=== PATIENT | male | born 1980 ===

== ENCOUNTER 2016-10-07 22:46 | Observation (INO) | payer OTHER ==
[2016-10-07 22:59] VITALS: RESP 16
[2016-10-07 23:08] LABS: % IMMATURE GRANULYOCYTES 0.2 % (0.0-1.1); ABSOLUTE IMMATURE GRANULOCYTES 0.02 10^3/uL (0.00-0.10); ADD DIFF? NO; ADD MORPH? NO; ADD SCAN? NO; ATYPICAL LYMPHOCYTE FLAG 0 (0-99); FRAGMENT RBC FLAG 0 (0-99); HEMATOCRIT 44.2 % (40.0-51.0); HEMOGLOBIN 15.4 g/dL (13.7-17.5); LEFT SHIFT FLG 0 (0-99); LIPEMIA HEMOLYSIS FLAG 90 (0-99); MEAN CELL HEMOGLOBIN 31.6 pg (27.9-34.1); MEAN CELL HEMOGLOBIN CONCENTR. 34.8 g/dL (32.4-36.7); MEAN CELL VOLUME 90.6 fL (81.5-99.8); MEAN PLATELET VOLUME 9.9 fL (8.7-11.7); PLATELET CLUMPS FLAG 0 (0-99); PLATELET COUNT 255 10^3/uL (150-400); RED BLOOD CELL COUNT 4.88 10^6/uL (4.40-6.38); RED CELL DISTRIBUTION WIDTH 12.6 % (11.5-15.2)
--- NOTE | 2016-10-07 23:10 | CPEKG ---
Heart Rate: 107 RR Interval: 561 P-R Interval: 196 QRSD Interval: 86 QT Interval: 296 QTC Interval: 395 P [place]: 45 QRS [place]: -10 T Wave [place]: 130 EKG Severity - ABNORMAL ECG - EKG Impression: SINUS TACHYCARDIA EKG Impression: PROBABLE LEFT ATRIAL ABNORMALITY EKG Impression: NONSPECIFIC T ABNORMALITIES, LATERAL LEADS Electronically Signed By: Loyda Brandon 08-Oct-2016 08:18:21
[2016-10-07 23:14] LABS: ANION GAP 21 mEq/L (8-16); CALCIUM 9.2 mg/dL (8.5-10.4); CARBON DIOXIDE 22 mEq/l (22-31); CHLORIDE 102 mEq/L (97-110); CREATININE 1.2 mg/dL (0.7-1.3); GLOMERULAR FILTRATION RATE > 60; GLUCOSE 97 mg/dL (70-100); POTASSIUM 3.2 mEq/L (3.5-5.2); SODIUM 145 mEq/L (134-144)
[2016-10-07 23:23] LABS: INR 1.08 (0.83-1.16); PROTIME(PATIENT) 13.9 SEC (12.0-15.0)
[2016-10-07 23:24] LABS: APTT 22.9 SEC (23.0-38.0)
[2016-10-07 23:33] LABS: ETHANOL SERUM 85 mg/dL (0-10)
--- NOTE | 2016-10-07 23:44 | EDPHY ---
H & P Stated Complaint: sudden onset of confusion at 2150, 4 beers tonight Time Seen by Provider: 10/07/16 22:50 HPI/ROS: HPI The patient presents with an episode of confusion that occurred at about 9:45 p.m. tonight while he was watching television. This was witnessed by his . They had had a normal day today, gone on a run and were at home after eating dinner and drinking about 4 beers over the course of 3-4 hours. According to the patient's , he was acting strangely and slurring his speech, he said he was feeling confused and could not describe what he was looking at on the television. They called his father in law, retired ER physician and the patient could not hold the phone properly to communicate with him, thus 911 was called. By the time the paramedics arrived the patient has had symptoms had improved somewhat and began to resolve while in the ambulance. His initial blood pressure by paramedics was 220 systolic over 110. Upon arrival in the emergency room, he was feeling much better. He says he does have a history of essential hypertension and was on lisinopril about 3 years ago but was able to manage his blood pressure with diet and exercise. His last blood pressure check was about 6 months ago and was normal. He does not have any headache. He has no prior history of similar. Besides the beer tonight, he denies any other drug ingestion.. REVIEW OF SYSTEMS Constitutional: No fever, no chills. Eyes: No discharge. ENT: No sore throat. Cardiovascular: No chest pain, no palpitations. Respiratory: No cough, no shortness of breath. Gastrointestinal: No abdominal pain, no vomiting. Genitourinary: No hematuria. Musculoskeletal: No back pain. Skin: No rashes. Neurological: No headache. PMHx: Hypertension Soc Hx: Alcohol use PHYSICAL General Appearance: Alert, no distress Eyes: Pupils equal and round no pallor or injection ENT, Mouth: Mucous membranes moist Respiratory: There are no retractions, lungs are clear to auscultation Cardiovascular: Regular rate and rhythm Gastrointestinal: Abdomen is soft and non-tender, no masses, bowel sounds normal Neurological: Alert and oriented x3, cranial nerves 2-12 intact, 5/5 strength in upper and lower extremities which is symmetric, no pronator drift, normal finger to nose and heel to carrillo testing, NIH stroke scale performed and is 0. Skin: Warm and dry, no rashes Musculoskeletal: Neck is supple non tender Extremities: symmetrical, full range of motion Psychiatric: Patient is oriented X 3, there is no agitation Source: Patient, EMS Exam Limitations: No limitations - Personal History Current Tetanus/Diphtheria Vaccine: Yes Current Tetanus Diphtheria and Acellular Pertussis (TDAP): Yes Tetanus Vaccine Date: 2011 - Medical/Surgical History Hx Asthma: No Hx Chronic Respiratory Disease: No Hx Diabetes: No Hx Cardiac Disease: Yes Hx Renal Disease: No Hx Cirrhosis: No Hx Alcoholism: No Hx HIV/AIDS: No Hx Splenectomy or Spleen Trauma: No Other PMH: HTN, hydrocele repair as a child - Social History Smoking Status: Never smoked Constitutional: Initial Vital Signs Temperature (C) 36.7 C 10/07/16 22:57 Heart Rate 110 H 10/07/16 22:57 Respiratory Rate 16 10/07/16 22:57 Blood Pressure 189/115 H 10/07/16 22:57 O2 Sat (%) 95 10/07/16 22:57 O2 Delivery Mode Nasal Cannula Allergies/Adverse Reactions: No Known Allergies Allergy (Unverified 10/07/16 22:57) Home Medications: Medication Instructions Recorded NK [No Known Home Meds] 10/07/16 Medical Decision Making - Diagnostics EKG Interpretation: EKG: Complete interpretation has been separately recorded in the [email or web address] archive. Summary impression: Sinus tachycardia with T-wave flattening diffusely, no old for comparison Imaging: CT head without contrast demonstrates no abnormalities, discussed with Dr. Giles of Radiology. Chest x-ray one view shows no cardiomegaly, interpreted by me, reviewed by radiology. ED Course/Re-evaluation: 10:50 p.m.- Initial evaluation, patient with no neurologic deficits at this time. Blood pressure continues to be elevated. 12:15 a.m.- The patient continues to be stable with no changes in his mental status. His blood pressures are elevated. Labs are relatively unremarkable except for positive alcohol level. His CT scan is unremarkable. I have discussed all of the above with him. I feel he could have hypertensive encephalopathy as a cause of his symptoms verses less likely TIA. Because his blood pressures continue to be elevated and there is some diagnostic uncertainty, I plan to admit him to the hospital. I have discussed the case with Dr. Garcia of the hospitalist service and I have ordered him a bed. I will defer blood pressure management to her. Differential Diagnosis: This is a 35-year-old man with history of hypertension who presents brought in by ambulance for episode of confusion, now mostly resolved. He is continually hypertensive here. Differential diagnosis includes TIA, posterior reversible leukoencephalopathy, drug use. - Data Points Laboratory Results: Laboratory Results 10/07/16 22:45 10/07/16 22:45 10/07/16 22:45 WBC 11.28 H 10^3/uL (3.80-9.50) RBC 4.88 10^6/uL (4.40-6.38) Hgb 15.4 g/dL (13.7-17.5) Hct 44.2 % (40.0-51.0) MCV 90.6 fL (81.5-99.8) MCH 31.6 pg (27.9-34.1) MCHC 34.8 g/dL (32.4-36.7) RDW 12.6 % (11.5-15.2) Plt Count 255 10^3/uL (150-400) MPV 9.9 fL (8.7-11.7) Neut % (Auto) 46.7 % (39.3-74.2) Lymph % (Auto) 43.4 % (15.0-45.0) [place] % (Auto) 8.8 % (4.5-13.0) Eos % (Auto) 0.5 L % (0.6-7.6) Baso % (Auto) 0.4 % (0.3-1.7) Nucleat RBC Rel Count 0.0 % (0.0-0.2) Absolute Neuts (auto) 5.26 10^3/uL (1.70-6.50) Absolute Lymphs (auto) 4.90 H 10^3/uL (1.00-3.00) Absolute Monos (auto) 0.99 H 10^3/uL (0.30-0.80) Absolute Eos (auto) 0.06 10^3/uL (0.03-0.40) Absolute Basos (auto) 0.05 10^3/uL (0.02-0.10) Absolute Nucleated RBC 0.00 10^3/uL (0-0.01) Immature Gran % 0.2 % (0.0-1.1) Immature Gran # 0.02 10^3/uL (0.00-0.10) PT 13.9 SEC (12.0-15.0) INR 1.08 (0.83-1.16) APTT 22.9 L SEC (23.0-38.0) Sodium 145 H mEq/L (134-144) Potassium 3.2 L mEq/L (3.5-5.2) Chloride 102 mEq/L (97-110) Carbon Dioxide 22 mEq/l (22-31) Anion Gap 21 H mEq/L (8-16) BUN 19 mg/dL (7-23) Creatinine 1.2 mg/dL (0.7-1.3) Estimated GFR > 60 Glucose 97 mg/dL (70-100) Calcium 9.2 mg/dL (8.5-10.4) Troponin I < 0.012 ng/mL (0-0.034) Ethyl Alcohol 85 H mg/dL (0-10) Departure - Departure Condition: Good
[2016-10-07 23:45] LABS: TROPONIN I < 0.012 ng/mL (0-0.034)
--- NOTE | 2016-10-07 23:46 | CT ---
CT Head (Without Contrast) Indication: Acute onset confusion Technique: 5 mm images were obtained of the head without contrast. Multiplanar reformation was perfor med. Dose reduction techniques were utilized. Findings: No evidence for intracranial mass, hemorrhage, or infarct. The ventricles, sulci, and ciste rns are within normal limits for the patient's age. No evidence for an extra-axial fluid collection. No evidence for skull fracture. Paranasal sinuses are clear. Impression: Normal. Results called and discussed with Loyda Brandon MD at 10/07/2016 23:45
--- NOTE | 2016-10-08 00:03 | DX ---
Portable chest, single view. HISTORY: Acute neurologic change. Confusion. FINDINGS: Heart size is within normal limits. Pulmonary vascularity appears normal. Lungs are clear. No evidence for pleural effusion or pneumothorax. No significant osseous abnormality. IMPRESSION: No evidence for acute cardiopulmonary abnormality.
[2016-10-08] MEDS ORDERED: ONDANSETRON 4 MG/2 ML VIAL IVP PRN (01:05)
[2016-10-08] MEDS ORDERED: ACETAMINOPHEN 500 MG TAB PO PRN (01:05)
[2016-10-08] MEDS ORDERED: HYDROCODONE/APAP 5/325 TAB PO PRN (01:05)
[2016-10-08] MEDS ORDERED: ONDANSETRON DISINTEGRATING 4 MG TAB PO PRN (01:05)
[2016-10-08 01:33] LABS: CHOLESTEROL 212 mg/dL (140-200); CHOLESTEROL/HDL RATIO 2.59 RATIO (1.00-4.97); HIGH DENSITY LIPOPROTEIN 82 mg/dL (40-65); LDL/HDL RATIO 1.22 RATIO (1.00-3.64); LOW DENSITY LIPOPROTEIN 100 mg/dL (70-100); MAGNESIUM 2.2 mg/dL (1.6-2.3); NON-HIGH DENSITY LIPOPROTEIN 130 mg/dL (90-129); TRIGLYCERIDE 151 mg/dL (40-150); VERY LOW DENSITY LIPOPROTEINS 30 mg/dL (8-25)
[2016-10-08 01:37] LABS: COLOR YELLOW; LEUKOCYTE ESTERASE,URINE NEGATIVE (NEGATIVE); NITRITE,URINE NEGATIVE (NEGATIVE)
--- NOTE | 2016-10-08 02:20 | PDGENHP ---
History and Physical - Chief Complaint altered mental status - History of Present Illness Patient is a [id number] with hypertension, recently diet/exercise controlled, who presents to the ED with altered mental status. Patient states he was watching a movie with his on the evening of presentation, when he suddenly started acting strangely, appeared to be confused and developed some slurring of his speech. He was not redirectable or improving, so pt's called EMS. On EMS' arrival, pt's BP was noted to be 220/110 and patient was altered. He was then transported to the ED. Denies any recent fevers , chills, DRAKE, chest pain, shortness of breath, cough, abdominal pain, n/v/d or dysuria. He also denies any focal numbness, tingling or weakness. Of note, patient states having a significantly stressful past 2-3 months, having recently gotten , started up a [employer] and moved to [place]. He states he was diagnosed with hypertension in his early 20s, secondary adrenal causes were ruled out and he was previously on lisinopril, but this had been discontinued after he adopted diet/lifestyle modification. He hasn't checked his BP in several years and does not have a PMD here in [place]. On the evening prior to arrival, patient reports eating a meal very high in salt. Mental status had improved significantly during transport to the ED and by arrival patient was back to his baseline mental status and speech. BP was noted to be elevated, but improved over ED course without intervention. Labs, including troponin were unremarkable. CT head and EKG were also unremarkable. He was then admitted to the hospitalist service for further management. History Information - Allergies/Home Medication List Allergies/Adverse Reactions: No Known Allergies Allergy (Unverified 10/07/16 22:57) Home Medications: NK [No Known Home Meds] 10/07/16 [Last Taken Unknown] I have personally reviewed and updated: family history, medical history, social history, surgical history - Past Medical History Additional medical history: Hypertension - Surgical History Reports: no pertinent surgical hx - Family History Additional family history: F: HTN - Social History Smoking Status: Never smoked Alcohol Use: Rarely Drug Use: None Additional social history: Patient lives with his , self-employed [employer] of [employer]. Review of Systems ROS: 10pt was reviewed & negative except for what was stated in HPI & below Physical Exam Temp Pulse Resp BP Pulse Ox 36.9 C 89 16 166/105 H 92 10/08/16 01:18 10/08/16 01:18 10/08/16 01:18 10/08/16 01:18 10/08/16 01:18 Constitutional: no apparent distress, appears nourished, not in pain Eyes: PERRL, anicteric sclera, EOMI Ears, Nose, Mouth, Throat: moist mucous membranes, hearing normal, ears appear normal, no oral mucosal ulcers Cardiovascular: regular rate and rhythym, no murmur, rub, or gallop, pulses symmetric bilaterally, No JVD, No edema Peripheral Pulses: 2+: dorsalis-pedis (R), dorsalis-pedis (L) Respiratory: no respiratory distress, no rales or rhonchi, clear to auscultation Gastrointestinal: normoactive bowel sounds, soft, non-tender abdomen, no palpable masses Genitourinary: no bladder fullness, no bladder tenderness Skin: warm, normal color, no rashes or abrasions, no fluctuance, no induration, No mottled Musculoskeletal: full muscle strength, no muscle tenderness, normal joint ROM, no joint effusions Neurologic: AAOx3, sensation intact bilaterally, CN II-XII Intact, No weakness, No numbness, No pronator drift, No facial droop Psychiatric: interacting appropriately, not anxious, not encephalopathic, thought process linear Lab Data & Imaging Review 10/07/16 22:45 10/07/16 22:45 WBC 11.28 10^3/uL (3.80-9.50) H 10/07/16 22:45 RBC 4.88 10^6/uL (4.40-6.38) 10/07/16 22:45 Hgb 15.4 g/dL (13.7-17.5) 10/07/16 22:45 Hct 44.2 % (40.0-51.0) 10/07/16 22:45 MCV 90.6 fL (81.5-99.8) 10/07/16 22:45 MCH 31.6 pg (27.9-34.1) 10/07/16 22:45 MCHC 34.8 g/dL (32.4-36.7) 10/07/16 22:45 RDW 12.6 % (11.5-15.2) 10/07/16 22:45 Plt Count 255 10^3/uL (150-400) 10/07/16 22:45 MPV 9.9 fL (8.7-11.7) 10/07/16 22:45 Neut % (Auto) 46.7 % (39.3-74.2) 10/07/16 22:45 Lymph % (Auto) 43.4 % (15.0-45.0) 10/07/16 22:45 [place] % (Auto) 8.8 % (4.5-13.0) 10/07/16 22:45 Eos % (Auto) 0.5 % (0.6-7.6) L 10/07/16:45 Baso % (Auto) 0.4 % (0.3-1.7) 10/07/16 22:45 Nucleat RBC Rel Count 0.0 % (0.0-0.2) 10/07/16 22:45 Absolute Neuts (auto) 5.26 10^3/uL (1.70-6.50) 10/07/16 22:45 Absolute Lymphs (auto) 4.90 10^3/uL (1.00-3.00) H 10/07/16 22:45 Absolute Monos (auto) 0.99 10^3/uL (0.30-0.80) H 10/07/16 22:45 Absolute Eos (auto) 0.06 10^3/uL (0.03-0.40) 10/07/16 22:45 Absolute Basos (auto) 0.05 10^3/uL (0.02-0.10) 10/07/16:45 Absolute Nucleated RBC 0.00 10^3/uL (0-0.01) 10/07/16:45 Immature Gran % 0.2 % (0.0-1.1) 10/07/16:45 Immature Gran # 0.02 10^3/uL (0.00-0.10) 10/07/16 22:45 PT 13.9 SEC (12.0-15.0) 10/07/16 22:45 INR 1.08 (0.83-1.16) 10/07/16 22:45 APTT 22.9 SEC (23.0-38.0) L 10/07/16 22:45 Sodium 145 mEq/L (134-144) H 10/07/16 22:45 Potassium 3.2 mEq/L (3.5-5.2) L 10/07/16 22:45 Chloride 102 mEq/L (97-110) 10/07/16 22:45 Carbon Dioxide 22 mEq/l (22-31) 10/07/16 22:45 Anion Gap 21 mEq/L (8-16) H 10/07/16 22:45 BUN 19 mg/dL (7-23) 10/07/16 22:45 Creatinine 1.2 mg/dL (0.7-1.3) 10/07/16 22:45 Estimated GFR > 60 10/07/16 22:45 Glucose 97 mg/dL (70-100) 10/07/16 22:45 Calcium 9.2 mg/dL (8.5-10.4) 10/07/16 22:45 Magnesium 2.2 mg/dL (1.6-2.3) 10/07/16 22:45 Troponin I < 0.012 ng/mL (0-0.034) 10/07/16 22:45 Triglycerides 151 mg/dL (40-150) H 10/07/16 22:45 Cholesterol 212 mg/dL (140-200) H 10/07/16 22:45 Cholesterol Risk Factr 0.4 (0.2-1.0) 10/07/16 22:45 LDL Cholesterol, Calc 100 mg/dL (70-100) 10/07/16 22:45 LDL Risk Factor 0.6 (0.2-1.0) 10/07/16 22:45 VLDL Cholesterol 30 mg/dL (8-25) H 10/07/16 22:45 Non-HDL Cholesterol 130 mg/dL (90-129) H 10/07/16 22:45 HDL Cholesterol 82 mg/dL (40-65) H 10/07/16 22:45 LDL/HDL Ratio 1.22 RATIO (1.00-3.64) 10/07/16 22:45 Cholesterol/HDL Ratio 2.59 RATIO (1.00-4.97) 10/07/16 22:45 TSH 3.420 uIU/mL (0.465-4.680) 10/07/16 22:45 Urine Color YELLOW 10/08/16 01:20 Urine Appearance CLEAR 10/08/16 01:20 Urine pH 6.0 (5.0-7.5) 10/08/16 01:20 Ur Specific [place] 1.008 (1.002-1.030) 10/08/16 01:20 Urine Protein NEGATIVE (NEGATIVE) 10/08/16 01:20 Urine Ketones NEGATIVE (NEGATIVE) 10/08/16 01:20 Urine Blood NEGATIVE (NEGATIVE) 10/08/16 01:20 Urine Nitrate NEGATIVE (NEGATIVE) 10/08/16 01:20 Urine Bilirubin NEGATIVE (NEGATIVE) 10/08/16 01:20 Urine Urobilinogen NEGATIVE EU (0.2-1.0) 10/08/16 01:20 Ur Leukocyte Esterase NEGATIVE (NEGATIVE) 10/08/16 01:20 Urine Glucose NEGATIVE (NEGATIVE) 10/08/16 01:20 Urine Opiates Screen NEGATIVE (NEGATIVE) 10/08/16 01:20 Urine Barbiturates NEGATIVE (NEGATIVE) 10/08/16 01:20 Ur Phencyclidine Scrn NEGATIVE (NEGATIVE) 10/08/16 01:20 Ur Amphetamine Screen NEGATIVE (NEGATIVE) 10/08/16 01:20 U Benzodiazepines Scrn NEGATIVE (NEGATIVE) 10/08/16 01:20 Urine Cocaine Screen NEGATIVE (NEGATIVE) 10/08/16 01:20 U Marijuana (THC) Screen NEGATIVE (NEGATIVE) 10/08/16 01:20 Ethyl Alcohol 85 mg/dL (0-10) H 10/07/16 22:45 Visualized and Interpreted Chest x-ray results: Yes Chest X-Ray results: no infiltrate, normal Visualized and Interpreted imaging results: Yes Interpretation: CT head: negative for any acute intracranial abnormalities Visualized and Interpreted EKG results: Yes EKG Interpretation: Positive for: normal sinsus rhythm (no obvious ST/t wave changes) Assessment & Plan Assessment: Patient is a 35/M with HTN, previously controlled with lifestyle modification, who presents to the ED with acute encephalopathy in the setting of markedly elevated BP, consistent with hypertensive emergency vs TIA. Plan: # acute encephalopathy Encephalopathy was noted to be associated with mild dysarthria and possible ptosis, per pt's . All symptoms have resolved and patient has returned to baseline mental status on my evaluation. CT head reveals no acute abnormalities. At time of AMS, pt's BP was noted to be > 200/100, which appears consistent with hypertensive emergency, however, TIA is also on the differential. - neuro checks, BP control - check TTE, lipid panel, TSH # hypertensive emergency BP > 200 with evidence of end-organ damage given acute encephalopathy. BP improved over ED course without intervention, however, still elevated. Pt relates a significant amount of personal stress over the past several months, in addition was recently noncompliant with a low salt diet, both of which have likely contributed to his uncontrolled BP present on admission. Pt was previously on lisinopril, will restart this. # dispo: admit to observation status for TIA vs HTN emergency # gen: cardiac diet DVT ppx: low risk Full code
[2016-10-08] MEDS ORDERED: PROTOCOL POTASSIUM 1 DOSE MISC PRN (04:37)
[2016-10-08] MEDS ORDERED: PROTOCOL MAGNESIUM 1 DOSE IV PRN (04:37)
[2016-10-08] MEDS ORDERED: hydrALAZINE 20 MG/ML VIAL IVP PRN (04:46)
[2016-10-08] MEDS ORDERED: LISINOPRIL 10 MG TAB PO SCH ×2 (05:00→09:00)
--- NOTE | 2016-10-08 05:52 | CPEKG ---
Heart Rate: 70 RR Interval: 857 P-R Interval: 184 QRSD Interval: 86 QT Interval: 400 QTC Interval: 432 P [place]: 55 QRS [place]: 0 T Wave [place]: -16 EKG Severity - BORDERLINE ECG - EKG Impression: SINUS RHYTHM EKG Impression: BORDERLINE T ABNORMALITIES, INFERIOR LEADS Electronically Signed By: Loyda Brandon 08-Oct-2016 08:18:08
[2016-10-08 06:00] LABS: MAGNESIUM 2.2 mg/dL (1.6-2.3)
--- NOTE | 2016-10-08 08:34 | HOSPPROG ---
Hospitalist Progress Note Assessment/Plan: Patient is a 35/M with HTN, previously controlled with lifestyle modification, who presents to the ED with acute encephalopathy in the setting of markedly elevated BP, consistent with hypertensive emergency vs TIA. # acute encephalopathy * TIA vs hypertensive urgency * had mild dysarthria and possible ptosis/ resolved * will ask neurology to see * CT of head ok * will check CT angio of head and neck * reviewed telemetry-sinus * asa po * allow for permissive htn * echo pending # hypertensive emergency BP > 200 with evidence of end-organ damage given acute encephalopathy. # dispo: admit to observation Subjective: Slava is feeling well/ no difficulty w his speech/ no complaints. Objective: Vital Signs Temp Pulse Resp BP Pulse Ox 36.7 C 80 16 140/83 H 96 10/08/16 04:00 10/08/16 04:00 10/08/16 04:00 10/08/16 04:00 10/08/16 04:00 Laboratory Results 10/08/16 05:35 10/07/16 10/08/16 10/09/16 05:59 05:59 05:59 Intake Total 200 Output Total 600 Balance -400 PT 13.9 SEC (12.0-15.0) 10/07/16 22:45 INR 1.08 (0.83-1.16) 10/07/16 22:45 - Physical Exam Constitutional: no apparent distress, appears nourished, not in pain Eyes: PERRL Ears, Nose, Mouth, Throat: moist mucous membranes, hearing normal Cardiovascular: regular rate and rhythym, no murmur, rub, or gallop Respiratory: no respiratory distress Gastrointestinal: normoactive bowel sounds Skin: warm, normal color Musculoskeletal: full muscle strength, no muscle tenderness Neurologic: AAOx3, sensation intact bilaterally, CN II-XII Intact, No weakness, No facial droop Psychiatric: interacting appropriately, not anxious, not encephalopathic ICD10 Worksheet Patient Problems: Problems Problem Status Diagnosed Hypertensive encephalopathy syndrome Acute
[2016-10-08] MEDS ORDERED: ASPIRIN 81 MG CHEWABLE TAB PO SCH (09:00)
[2016-10-08] MEDS ORDERED: NS 1,000 ML IV SCH (09:00)
[2016-10-08] MEDS ORDERED: IOPAMIDOL (ISOVUE 370) 100 ML BTL IV ONE (10:07)
--- NOTE | 2016-10-08 11:22 | GCON ---
[f rep st] CONSULTATION NEUROLOGIC CONSULTATION. REFERRING PHYSICIAN: Ashley Ko NP HISTORY: The patient is a 35-year-old gentleman who is here in the hospital for an acute episode of neurologic dysfunction characterized by some confusion, trouble speaking, visual complaints, and florentin edly elevated high blood pressure. History is obtained from direct review from the patient, as well as his and review of medical records in the emergency department and history and physical. He was spending yesterday fairly active and had gone on a hike in the afternoon, and they apparently were in the 9000 or 10,000 foot range maximum, doing some running during that time but mostly hiking, and he felt a little bit short of breath during that time, but nothing particularly unusual. 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 They came home, had dinner, then had a beer, and perhaps 3 more beers after that by the patient's report. There were watching a movie, and at around 9:30 p.m. his said that he started to laugh and it was not a period where it would be logical to laugh in the film. He said sometimes he teases him that way and so he was not sure if he was actually having a problem or not, so he spoke to him and tried to get his attention and when h e turned his head toward him he said he was not really able to focus very well at him, and he had max cribed just prior to that getting a sense of perhaps john vu. He did not have any fixed gaze prefere nce or asymmetry to his face, and did not appear to be having any convulsive activity. As he tried c ommunicating with him more it became clear that he was struggling for words, and was a little bit con fused. He wanted to call his stepfather and he initially told him not to do that, but he did speak t o him and said he needed to go the bathroom. He went to the bathroom and when he was checked on he w as having some kind of wandering around and seemed confused still. Rescue squad was called, and came to evaluate him. The patient says he remembers the initial symptoms and had been blinking some and explained that he was having trouble seeing. He also recalls wanting to speak but having trouble spe aking. He then has only a vague awareness of exactly what was happening over the next 30 minutes or so. He remembers seeing people in the house, getting in the rescue squad, and started to communicate when he was there. The paramedics arrived and documented a blood pressure of 200 systolic over 110. By the time he got to the emergency room he was definitely feeling much better. The blood pressure in the emergency room was 189/115 at 2257. His temperature at that time was 36.7 with a pulse of 11 0 and respirations of 16. His said also that the patient looked pale when he was seeing him at home, and by the time he got to the emergency room he was regaining his normal color. At no point was he specifically descri meg focal numbness or weakness. He has never had any headache with this. He has no history of migr latesha. He has never had a similar phenomenon to this occur. He does not have any history of seizures . The estimate is that it took perhaps a total of 1 hour to get back to his normal baseline, and he has remained at that level since hospitalization. 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 He stays very physically active. He is a nonsmoker. He has occasional al cohol. No drug use. He has a history of hypertension, which was diagnosed several years ago, and he was previously on medication, even in his early 20s. He has been on lisinopril, tried to modify his lifestyle and was able to get off that, but has not been followed anywhere regularly for this. He h as had a fairly high salt intake with his meal. REVIEW OF SYSTEMS: Unremarkable. He did not have nausea or vomiting. There is no chest pain, palpi tations, or shortness of breath. FAMILY HISTORY: Notable for a pulmonary embolism, as well as a stroke. PHYSICAL EXAM: VITAL SIGNS: Current blood pressure is 144/90, pulse of 108, respirations 16, temper ature 36.7. GENERAL: He is well-developed, in no acute distress. Eyes are clear. NECK: Supple, w ith no bruits or masses. CARDIAC: Regular rate and rhythm, no murmur. EXTREMITIES: Have no cyanos is or edema. NEUROLOGIC: He is awake, alert, attentive and fully oriented. Normal fund of knowledg e. He has decreased memory for the events that occurred. The concentration and attention are normal . Pupils are 3 mm and reactive. Fundi are unremarkable. No visual field loss. Extraocular movemen ts are intact. Normal facial sensation and strength. Palate elevates symmetrically, and tongue prot rudes midline. Motor exam, normal muscle bulk and tone, 5/5 strength with no abnormal movements. Se nsation is preserved for temperature and light touch. Reflexes are 1 to 2+ and symmetric with no Bab inski signs. LABORATORY STUDIES: A tox screen was positive for alcohol level of 85 mg/dL. Urinalysis was unremar kable. Chemistry unremarkable, except for mildly decreased potassium of 3.2. LDL cholesterol 100, H DL of 82, normal INR, white count was mildly elevated at 11,000, otherwise unremarkable CBC. Sinus r hythm or sinus tachycardia on EKG. I reviewed the head CT, which is normal. We have ordered CT megan ogram of the head and neck, and those are pending. IMPRESSION: The patient has experienced an episode of neurologic dysfunction in the setting of promi nent hypertension. This may have been an episode of hypertensive encephalopathy. Unfortunately it i s hard to know definitively. He does have a known history of hypertension in the past, has not been treated for several years and appears to clearly need regular antihypertensive medication. As his bl ood pressure came down his neurologic symptoms have resolved within 1 hour. Other differential consi derations would include a transient ischemic attack or complex migraine aura without headache. He do es not have a history of migraine, so this is clearly a diagnosis of exclusion. The possible diagnos is of complex partial seizure seems unlikely, the way the clinical events are described, and the 1 ho ur duration of symptoms. We want to rule out any focal lesions in the left carotid system given the description that there was some expressive language difficulty, and also mentioned from his t hat there was some very brief ptosis, he thought, perhaps of the left eyelid. At this point I do not find any abnormalities on his neurologic examination. His NIH stroke scale is 0. He has been start ed on aspirin therapy at 81 mg, and I agree with that. I had a detailed discussion with the patient and his . If a CT angiogram is unremarkable I th ink he can be safely discharged. If he were to have any recurrent events, they are instructed to let me know. As to whether this could have been precipitated by the altitude earlier in the day, any co ntribution from the alcohol or purely the hypertension it is hard to say definitively. He certainly needs to emphasize the healthy as possible living he can and maintaining good control of his blood pr essure is essential, so he will need to establish with a primary care provider to continue to monitor his blood pressure closely. I would not put him on a statin at this point, because we are not diagn osing TIA. That should be monitored as well. /[id number]/MODL
--- NOTE | 2016-10-08 11:31 | CT ---
1. CT Angiography of the Neck (With Contrast) Clinical Indications: Dysarthria, ptosis, history of hypertension Technique: During IV administration of 85 mL of Isovue-370 intravenously, helical multidetector data acquisition was obtained from the upper thorax cephalad through the skull base. The thinly collimated data were manipulated in multiple projections on the 3D computer workstation by the radiologist. Do se reduction techniques were utilized. Findings: The common internal and external carotid arteries and carotid bifurcations are widely velasquez nt. Both vertebral arteries are widely patent. No evidence of occlusion, hemodynamically significant stenosis, dissection or ulceration. The right internal carotid artery is mildly tortuous compared to that on the left. Impression: Normal. Note: All stenoses are calculated using NASCET Criteria. 2. CT Angiography of the Head (With Contrast) Clinical Indications: Dysarthria, ptosis, history of hypertension Technique: During IV administration of 85 mL of Isovue-370 intravenously, helical multidetector data acquisition was obtained from the vertex to the skull base. Images are manipulated the 3D computer wo rkstation by the radiologist. Dose reduction techniques were utilized. Findings: Vessels of the [place] are normal. The distal internal carotid arteries, A1, A2 an d anterior cerebral arteries look normal. The origins of both ophthalmic arteries are normal. The M1, M2 and middle cerebral trifurcations look normal. The distal vertebral arteries are patent into a no rmal basilar artery. Both posterior cerebral , superior cerebellar and posterior inferior cerebellar arteries are patent and symmetric. There is no evidence for aneurysm, vasculitis or embolism. The xochilt or venous sinuses patent. Impression: Normal. Note: All stenoses are calculated using NASCET Criteria. General information for patients regarding this examination can be found at [email or web address]. If you have questions or comments about this report, please contact me at [phone] (hospital) or [phone] (cell).
--- NOTE | 2016-10-08 11:31 | CT ---
1. CT Angiography of the Neck (With Contrast) Clinical Indications: Dysarthria, ptosis, history of hypertension Technique: During IV administration of 85 mL of Isovue-370 intravenously, helical multidetector data acquisition was obtained from the upper thorax cephalad through the skull base. The thinly collimated data were manipulated in multiple projections on the 3D computer workstation by the radiologist. Do se reduction techniques were utilized. Findings: The common internal and external carotid arteries and carotid bifurcations are widely velasquez nt. Both vertebral arteries are widely patent. No evidence of occlusion, hemodynamically significant stenosis, dissection or ulceration. The right internal carotid artery is mildly tortuous compared to that on the left. Impression: Normal. Note: All stenoses are calculated using NASCET Criteria. 2. CT Angiography of the Head (With Contrast) Clinical Indications: Dysarthria, ptosis, history of hypertension Technique: During IV administration of 85 mL of Isovue-370 intravenously, helical multidetector data acquisition was obtained from the vertex to the skull base. Images are manipulated the 3D computer wo rkstation by the radiologist. Dose reduction techniques were utilized. Findings: Vessels of the [place] are normal. The distal internal carotid arteries, A1, A2 an d anterior cerebral arteries look normal. The origins of both ophthalmic arteries are normal. The M1, M2 and middle cerebral trifurcations look normal. The distal vertebral arteries are patent into a no rmal basilar artery. Both posterior cerebral , superior cerebellar and posterior inferior cerebellar arteries are patent and symmetric. There is no evidence for aneurysm, vasculitis or embolism. The xochilt or venous sinuses patent. Impression: Normal. Note: All stenoses are calculated using NASCET Criteria. General information for patients regarding this examination can be found at [email or web address]. If you have questions or comments about this report, please contact me at [phone] (hospital) or [phone] (cell).
[2016-10-08 11:37] VITALS: BP 152/100; PULSE 69; TEMP 98.7; O2SAT 96
--- NOTE | 2016-10-08 13:50 | ECHO ---
[id number] + + [address] : : [place] [address] : : [phone] + + Adult Echocardiographic Report + -------+ :Name: KATE ROBERTSON Date: 10/08/2016 11:07 AM BP: 161/9 6 mmHg : : Hospital Admission Number: [id number] : :: 1980 Gender: Male Height: 7 5 in : :Age: 35 yrs Race: PTD Weight: 2 15 lb : :Reason For Study: ?tia : : BSA: 2.3 meters2: :History: hypertensive emergency : + -------+ MMode/2D Measurements & Calculations IVSd: 1.2 cm RVDd: 3.2 cm FS: 35.9 % Ao root diam: LVPWd: 1.1 cm LVIDd: 4.4 cm EDV(Teich): 2.3 cm LVIDs: 2.8 cm 87.5 ml ESV(Teich): 30.1 ml EF(Teich): 65.6 % LVLd ap4: 9.4 cm SV(MOD-sp4): EDV(MOD-sp4): 94.0 ml 131.0 ml LVLs ap4: 7.2 cm ESV(MOD-sp4): 37.0 ml EF(MOD-sp4): 71.8 % Normal Measurement Values: + + :LVIDd (3.5-5.7cm) IVSd (0.6-1.1cm) LVPWd (0.6-1.1cm) Aortic Root (2.0-3.7cm)Left Atrium (1.5-4.0cm): :LV Vol(d) (76-115ml) LV Vol(s) (29-48ml) Ejec Fraction (50-65%)PV Vinh (0.6- 1.2m/s) TV Vinh (0.4-1.0m/s) : :MV E Vinh (0.8-1.0m/s)MV A Vinh (0.3-1.0m/s)LVOT Vinh (0.7-1.2m/s) Asc Ao Vinh ( 0.9-1.8m/s) : + + Doppler Measurements & Calculations MV E max vinh: Ao V2 max: LV V1 max: PA V2 max: 75.5 cm/sec 148.8 cm/sec 108.6 cm/sec 109.8 cm/sec MV A max vinh: Ao max PG: LV V1 max PG: PA max P.1 cm/sec 8.9 mmHg 4.7 mmHg 4.8 mmHg MV E/A: 1.1 MV dec time: 0.19 sec TR max vinh: 181.0 cm/sec TR max P.1 mmHg RAP systole: 5.0 mmHg RVSP(TR): 18.1 mmHg Left Ventricle The left ventricle is normal in size and function. There is mild concentric left ventricular hypertrophy. Ejection Fraction = 65-70%. No regional wall motion abnormalities noted. Right Ventricle The right ventricle is normal in size and function. Atria The left atrial size is normal. Right atrial size is normal. Mitral Valve The mitral valve is normal in structure and function. There is no mitral valve stenosis. There is mild mitral regurgitation. Tricuspid Valve The tricuspid valve is normal in structure and function. There is no tricuspid stenosis. There is trace to mild tricuspid regurgitation. Right ventricular systolic pressure is 18mmHg. Aortic Valve The aortic valve is normal in structure and function. There is no aortic stenosis. There is no aortic insufficiency. Pulmonic Valve The pulmonic valve is normal in structure and function. There is no pulmonic valvular regurgitation. Great Vessels The aortic root is normal size. Pericardium/Pleural There is no pericardial effusion. Conclusion A two-dimensional transthoracic echocardiogram with M-mode and Doppler was performed. There is no obvious source of embolus identified. If one is highly clinically suspected, then transesophageal echocardiography should be considered. The left ventricle is normal in size and function. There is mild concentric left ventricular hypertrophy. Ejection Fraction = 65-70%. There is mild mitral regurgitation. There is trace to mild tricuspid regurgitation. Right ventricular systolic pressure is 18mmHg. The aortic valve is normal in structure and function. No prior echo Final Reading Physician: Dr Cherry Lund electronically signed on 10/08/2016 01:49 PM Ordering Physician: Elda Garcia Performed By: Minnie Adrian
--- NOTE | 2016-10-08 17:39 | GDS ---
[f rep st] DISCHARGE SUMMARY DISCHARGE DIAGNOSES: 1. Acute encephalopathy/resolved. 2. Hypertensive emergency. CONSULTATIONS: Conor Barrera MD BRIEF HISTORY: Slava Natarajan is a very nice, 35-year-old man who was brought in for altered mental status, acute encephalopathy. He was watching a movie with his when he started acting strangely. He seemed confused, and there was concern of some slurred speech. EMS was called. His blood pressure was noted to be 210/110. He has a history of hypertension that he has been controlling with exercise and diet. Prior to this, he had been on lisinopril. He has also been under significant stress. He was admitted for acute encephalopathy. Dr. Conor Barrera came to further evaluate the patient. He noted that he had an episode of neurologic dysfunction with significant hypertension. It could have been an episode of hypertensive encephalopathy as well as possibly a transient ischemic attack or complex migraine aura without headache. He had a CT of his head that was noted to be normal. A CTA of the head and neck were also performed, which were noted to be normal. An echocardiogram was performed, which showed no obvious source of embolus identified. He has an EF of 65% to 70%. His left ventricle is normal in size and function. He will be discharged home on lisinopril. He has been on this in the past. He has been given the name to a primary care provider, Dr. Mary Mejia, for further followup care. He will also follow up with Dr. Conor Barrera, if he should have any further neurologic dysfunctions. CONDITION AT DISCHARGE: Stable. Blood pressure is 152/100, heart rate is 69, respiratory rate is 16, O2 saturation on room air are 96%, temperature is 37.1 Celsius. MEDICATIONS AT DISCHARGE: Please see the EMR. DISCHARGE INSTRUCTIONS: 1. To take his blood pressure daily and keep a record so when he sees his primary care provider he is able to have this further evaluated. 2. Take lisinopril daily and to stay well hydrated. 3. Recommending aspirin therapy until he follows up with the primary care provider. 4. If he develops any stroke-like symptoms, to return to the emergency room. /[id number]/MODL MTDD
== END 2016-10-08 15:31 | disposition home or self-care (01) ==
LOC: F3N 10-08 01:15
PROVIDERS: ADMIT Internal Medicine; ATTEND Internal Medicine
DX: G93.40 Encephalopathy, unspecified (principal); I16.1 Hypertensive emergency; I10 Essential (primary) hypertension; R29.700 NIHSS score 0
CPT/HCPCS: 70450; 70496; 70498; 71010; 93005; 93306; G0378; 80305; G0480; Q9967